=== PATIENT | male | born 1995 | race Caucasian/White ===

== ENCOUNTER 2017-08-08 17:10 | Inpatient (IN) | payer MEDICAID ==
[2017-08-08 19:55] VITALS: BP 126/64
[2017-08-08 20:38] VITALS: BP 150/90
[2017-08-08 21:23] VITALS: BP 115/60
[2017-08-08] MEDS ORDERED: PNEUMOCOCCAL VACCINE POLYVALENT 0.5 ML VIAL [PPSV23] IM ONE (22:45)
[2017-08-09 06:44] VITALS: BP 106/64
[2017-08-09 08:37] VITALS: BP 121/69
[2017-08-09] MEDS: LORazepam 2 MG TABLET PO PRN ×3 (09:36→20:13)
[2017-08-09] MEDS ORDERED: DiphenhydrAMINE HCL 25 MG CAPSULE PO ONE (13:00)
[2017-08-09] MEDS ORDERED: OLANZapine 10 MG TABLET PO ONE (13:00)
[2017-08-09 16:30] VITALS: BP 112/66
[2017-08-09] MEDS: OLANZapine 10 MG TABLET PO SCH (16:44)
[2017-08-09] MEDS: DiphenhydrAMINE HCL 25 MG CAPSULE PO SCH (16:44)
[2017-08-09] MEDS: ZOLPIDEM TARTRATE 10 MG TABLET PO PRN (20:13)
[2017-08-10 01:03] VITALS: BP 119/79
[2017-08-10] MEDS: DiphenhydrAMINE HCL 25 MG CAPSULE PO SCH ×2 (09:25→16:35)
[2017-08-10] MEDS: OLANZapine 10 MG TABLET PO SCH ×2 (09:25→16:35)
[2017-08-10 09:38] VITALS: BP 125/84
[2017-08-10 16:21] VITALS: BP 125/71
[2017-08-10] MEDS: LORazepam 2 MG TABLET PO PRN (16:35)
[2017-08-10] MEDS: OLANZapine 5 MG RAPDIS TABLET PO PRN (20:10)
[2017-08-10] MEDS: ZOLPIDEM TARTRATE 10 MG TABLET PO PRN (20:10)
[2017-08-11 06:22] VITALS: BP 105/66
[2017-08-11 08:34] VITALS: BP 110/64
[2017-08-11] MEDS: DiphenhydrAMINE HCL 25 MG CAPSULE PO SCH ×2 (09:08→17:09)
[2017-08-11] MEDS: OLANZapine 10 MG TABLET PO SCH ×2 (09:08→17:09)
[2017-08-11] MEDS: LORazepam 2 MG TABLET PO PRN ×3 (09:08→21:10)
[2017-08-11 16:10] VITALS: BP 118/73
[2017-08-11] MEDS: ZOLPIDEM TARTRATE 10 MG TABLET PO PRN (21:10)
[2017-08-12 06:15] VITALS: BP 105/65
[2017-08-12 08:45] VITALS: BP 104/65
[2017-08-12] MEDS: LORazepam 2 MG TABLET PO PRN ×3 (09:24→20:55)
[2017-08-12] MEDS: DiphenhydrAMINE HCL 25 MG CAPSULE PO SCH ×2 (09:24→16:53)
[2017-08-12] MEDS: OLANZapine 10 MG TABLET PO SCH ×2 (09:25→16:53)
[2017-08-12 16:00] VITALS: BP 112/68
[2017-08-12] MEDS: OLANZapine 5 MG RAPDIS TABLET PO PRN (16:54)
[2017-08-12] MEDS: ZOLPIDEM TARTRATE 10 MG TABLET PO PRN (20:55)
[2017-08-13 00:01] VITALS: BP 119/65
[2017-08-13 08:21] VITALS: BP 104/65
[2017-08-13] MEDS: DiphenhydrAMINE HCL 25 MG CAPSULE PO SCH ×2 (08:56→16:16)
[2017-08-13] MEDS: LORazepam 2 MG TABLET PO PRN ×2 (08:56→16:17)
[2017-08-13] MEDS: OLANZapine 10 MG TABLET PO SCH ×2 (08:56→16:16)
[2017-08-13 16:00] VITALS: BP 130/88
[2017-08-13] MEDS: OLANZapine 5 MG RAPDIS TABLET PO PRN (16:17)
[2017-08-14 07:11] VITALS: BP 128/78
[2017-08-14 08:23] VITALS: BP 102/63
[2017-08-14] MEDS: DiphenhydrAMINE HCL 25 MG CAPSULE PO SCH ×2 (08:43→16:27)
[2017-08-14] MEDS: LORazepam 2 MG TABLET PO PRN ×2 (08:43→16:27)
[2017-08-14] MEDS: OLANZapine 10 MG TABLET PO SCH (08:52)
[2017-08-14 16:18] VITALS: BP 117/66
[2017-08-14] MEDS: OLANZapine 7.5 MG TABLET PO SCH (16:27)
[2017-08-15 07:25] VITALS: BP_SYST 106; BP_SYST 120; BP_DIAS 66; BP_DIAS 78
[2017-08-15] MEDS: OLANZapine 7.5 MG TABLET PO SCH ×2 (09:46→17:08)
[2017-08-15] MEDS: LORazepam 2 MG TABLET PO PRN ×2 (09:47→17:09)
[2017-08-15] MEDS: DiphenhydrAMINE HCL 25 MG CAPSULE PO SCH ×2 (09:47→17:08)
[2017-08-15 16:36] VITALS: BP 111/63
[2017-08-15] MEDS: ZOLPIDEM TARTRATE 10 MG TABLET PO PRN (20:27)
[2017-08-15] MEDS ORDERED: NYSTATIN 15 GM POWDER BOTTLE TP PRN (21:00)
[2017-08-16 05:21] VITALS: BP 118/73
[2017-08-16 08:25] VITALS: BP 110/68
[2017-08-16] MEDS: DiphenhydrAMINE HCL 25 MG CAPSULE PO SCH ×2 (09:15→16:08)
[2017-08-16] MEDS: OLANZapine 7.5 MG TABLET PO SCH ×2 (09:16→16:08)
[2017-08-16] MEDS: LORazepam 2 MG TABLET PO PRN ×2 (09:22→16:08)
[2017-08-16 16:00] VITALS: BP 118/70
[2017-08-16] MEDS: OLANZapine 5 MG RAPDIS TABLET PO PRN (16:08)
[2017-08-17 00:35] VITALS: BP 114/80
[2017-08-17 08:27] VITALS: BP 108/62
[2017-08-17] MEDS: DiphenhydrAMINE HCL 25 MG CAPSULE PO SCH ×2 (09:08→16:19)
[2017-08-17] MEDS: LORazepam 2 MG TABLET PO PRN ×2 (09:08→16:19)
[2017-08-17] MEDS: OLANZapine 7.5 MG TABLET PO SCH ×2 (09:09→16:19)
[2017-08-17 16:00] VITALS: BP 114/70
[2017-08-17] MEDS: OLANZapine 5 MG RAPDIS TABLET PO PRN (16:20)
[2017-08-18 05:41] VITALS: BP 116/72
[2017-08-18 08:28] VITALS: BP 108/64
[2017-08-18] MEDS: OLANZapine 7.5 MG TABLET PO SCH ×2 (09:18→16:50)
[2017-08-18] MEDS: LORazepam 2 MG TABLET PO PRN ×2 (09:18→16:51)
[2017-08-18] MEDS: DiphenhydrAMINE HCL 25 MG CAPSULE PO SCH ×2 (09:19→16:50)
[2017-08-18 16:00] VITALS: BP 123/70
[2017-08-18] MEDS: OLANZapine 5 MG RAPDIS TABLET PO PRN (16:51)
[2017-08-19 01:33] VITALS: BP 127/72
[2017-08-19 08:09] VITALS: BP 101/63
[2017-08-19] MEDS: LORazepam 2 MG TABLET PO PRN ×2 (09:43→17:23)
[2017-08-19] MEDS: DiphenhydrAMINE HCL 25 MG CAPSULE PO SCH ×2 (09:43→17:23)
[2017-08-19] MEDS: OLANZapine 7.5 MG TABLET PO SCH ×2 (09:44→17:23)
[2017-08-19 16:00] VITALS: BP 112/66
[2017-08-19] MEDS: OLANZapine 5 MG RAPDIS TABLET PO PRN (21:21)
[2017-08-19] MEDS: ZOLPIDEM TARTRATE 10 MG TABLET PO PRN (21:21)
[2017-08-20 05:33] VITALS: BP 125/72
[2017-08-20 08:15] VITALS: BP 108/62
[2017-08-20] MEDS: DiphenhydrAMINE HCL 25 MG CAPSULE PO SCH ×2 (09:52→16:22)
[2017-08-20] MEDS: OLANZapine 7.5 MG TABLET PO SCH ×2 (09:52→16:22)
[2017-08-20 16:00] VITALS: BP 118/69
[2017-08-20] MEDS: OLANZapine 5 MG RAPDIS TABLET PO PRN (16:22)
[2017-08-20] MEDS: LORazepam 2 MG TABLET PO PRN (16:22)
[2017-08-21 03:12] VITALS: BP 122/66
[2017-08-21 08:24] VITALS: BP 108/65
[2017-08-21] MEDS: OLANZapine 7.5 MG TABLET PO SCH ×2 (08:42→17:08)
[2017-08-21] MEDS: LORazepam 2 MG TABLET PO PRN ×2 (08:42→17:09)
[2017-08-21] MEDS: DiphenhydrAMINE HCL 25 MG CAPSULE PO SCH ×2 (08:42→17:09)
[2017-08-21 16:00] VITALS: BP 123/71
[2017-08-21] MEDS: ZOLPIDEM TARTRATE 10 MG TABLET PO PRN (21:02)
[2017-08-21] MEDS: OLANZapine 5 MG RAPDIS TABLET PO PRN (21:02)
[2017-08-22 02:29] VITALS: BP 130/85
[2017-08-22] MEDS: OLANZapine 7.5 MG TABLET PO SCH ×2 (08:17→17:09)
[2017-08-22] MEDS: DiphenhydrAMINE HCL 25 MG CAPSULE PO SCH ×2 (08:17→17:09)
[2017-08-22 08:19] VITALS: BP 118/74
[2017-08-22 16:00] VITALS: BP 116/71
[2017-08-22] MEDS: LORazepam 2 MG TABLET PO PRN (17:09)
[2017-08-22] MEDS: ZOLPIDEM TARTRATE 10 MG TABLET PO PRN (20:34)
[2017-08-23 00:07] VITALS: BP 122/79
[2017-08-23 08:27] VITALS: BP 106/61
[2017-08-23] MEDS: DiphenhydrAMINE HCL 25 MG CAPSULE PO SCH ×2 (09:46→16:29)
[2017-08-23] MEDS: OLANZapine 7.5 MG TABLET PO SCH ×2 (09:46→16:28)
[2017-08-23 16:23] VITALS: BP 133/74
[2017-08-23] MEDS: LORazepam 2 MG TABLET PO PRN (20:21)
[2017-08-23] MEDS: ZOLPIDEM TARTRATE 10 MG TABLET PO PRN (20:21)
[2017-08-24 00:12] VITALS: BP 124/84
[2017-08-24 08:18] VITALS: BP 97/61
[2017-08-24] MEDS: OLANZapine 7.5 MG TABLET PO SCH ×2 (10:33→17:05)
[2017-08-24] MEDS: DiphenhydrAMINE HCL 25 MG CAPSULE PO SCH ×2 (10:33→17:05)
[2017-08-24 16:08] VITALS: BP 130/70
[2017-08-24] MEDS: LORazepam 2 MG TABLET PO PRN (17:05)
[2017-08-24] MEDS: OLANZapine 5 MG RAPDIS TABLET PO PRN (21:16)
[2017-08-24] MEDS: ZOLPIDEM TARTRATE 10 MG TABLET PO PRN (21:16)
[2017-08-25 00:48] VITALS: BP 109/61
[2017-08-25 08:10] VITALS: BP 112/66
[2017-08-25] MEDS: DiphenhydrAMINE HCL 25 MG CAPSULE PO SCH ×2 (09:36→16:31)
[2017-08-25] MEDS: OLANZapine 7.5 MG TABLET PO SCH ×2 (09:36→16:31)
[2017-08-25 16:00] VITALS: BP 116/69
[2017-08-25] MEDS: LORazepam 2 MG TABLET PO PRN (16:31)
[2017-08-26 05:01] VITALS: BP 121/83
[2017-08-26] MEDS: LORazepam 2 MG TABLET PO PRN ×2 (08:35→16:40)
[2017-08-26] MEDS: DiphenhydrAMINE HCL 25 MG CAPSULE PO SCH ×2 (08:35→16:40)
[2017-08-26] MEDS: OLANZapine 7.5 MG TABLET PO SCH ×2 (08:35→16:40)
[2017-08-26 08:38] VITALS: BP 114/62
[2017-08-26 16:43] VITALS: BP 110/82
[2017-08-27 00:01] VITALS: BP 116/75
[2017-08-27 08:28] VITALS: BP 112/72
[2017-08-27] MEDS: OLANZapine 7.5 MG TABLET PO SCH ×2 (08:46→17:06)
[2017-08-27] MEDS: DiphenhydrAMINE HCL 25 MG CAPSULE PO SCH ×2 (08:46→17:06)
[2017-08-27] MEDS: LORazepam 2 MG TABLET PO PRN ×2 (08:46→17:07)
[2017-08-27 16:00] VITALS: BP 116/70
[2017-08-28 05:19] VITALS: BP 118/76
[2017-08-28 08:15] VITALS: BP 129/74
[2017-08-28] MEDS: DiphenhydrAMINE HCL 25 MG CAPSULE PO SCH ×2 (09:05→16:05)
[2017-08-28] MEDS: OLANZapine 7.5 MG TABLET PO SCH ×2 (09:05→16:05)
[2017-08-28] MEDS: LORazepam 2 MG TABLET PO PRN ×2 (09:05→15:53)
[2017-08-28] MEDS: OLANZapine 5 MG RAPDIS TABLET PO PRN (15:53)
[2017-08-29 05:16] VITALS: BP 122/82
[2017-08-29 08:08] VITALS: BP 101/75
[2017-08-29] MEDS ORDERED: DIPH25 PO (08:27)
[2017-08-29] MEDS ORDERED: OLAN7.5T2 PO (08:27)
[2017-08-29] MEDS: OLANZapine 7.5 MG TABLET PO SCH (10:14)
[2017-08-29] MEDS: DiphenhydrAMINE HCL 25 MG CAPSULE PO SCH (10:14)
[2017-08-29] MEDS ORDERED: INFLUENZA VIRUS VACCINE QVS 2017-18 (3YR+)/PF 60 MCG/0.5 ML SYRINGE IM ONE (11:00)
== END 2017-08-29 16:00 | disposition home or self-care (01) | DRG 750 ==
LOC: B3A 20:30
DX: F25.1 Schizoaffective disorder, depressive type (principal); Z59.0 Homelessness; E66.3 Overweight; Z88.6 Allergy status to analgesic agent; Z79.899 Other long term (current) drug therapy; Z88.5 Allergy status to narcotic agent; Z88.8 Allergy status to other drugs, medicaments and biological substances; Z28.21 Immunization not carried out because of patient refusal

== ENCOUNTER 2019-05-02 21:00 | Emergency (ER) | payer MEDICAID, OTHER ==
[~2019-05-02] VITALS: Ht 175.3 cm; Wt 104.5 kg
[~2019-05-02 21:00] MED LIST: DIPH25 PO; OLAN7.5T2 PO
[2019-05-02] MEDS ORDERED: PANT40TA25 PO (21:22)
[2019-05-02] MEDS ORDERED: DIVA250T45 PO (21:22)
[2019-05-02] MEDS ORDERED: DIVA500T52 PO (21:22)
[2019-05-02] MEDS ORDERED: ATOR10TA84 PO (21:22)
[2019-05-02] MEDS ORDERED: QUET200T5 PO (21:22)
[2019-05-02] MEDS ORDERED: QUET400T PO (21:22)
[2019-05-02 21:29] LABS: BASOPHILS % (AUTO) 0.5 % (0.0-2.0); EOSINOPHILS % (AUTO) 0.1 % (1.0-6.0); HEMATOCRIT 43.3 % (41-53); HEMOGLOBIN 14.7 g/dL (13.5-17.5); LYMPHOCYTES # (AUTO) 1.7 K/uL (1.0-4.8); LYMPHOCYTES % (AUTO) 14.6 % (22.0-44.0); MEAN CORPUSCULAR HEMOGLOBIN 30.8 pg (26.0-34.0); MEAN CORPUSCULAR VOLUME 91 fL (80-100); MONOCYTES # (AUTO) 1.1 K/uL (0.1-1.0); MONOCYTES % (AUTO) 9.5 % (2.0-9.0); NEUTROPHILS # (AUTO) 8.9 K/uL (1.8-7.7); NEUTROPHILS % (AUTO) 75.3 % (40.0-70.0); PLATELET COUNT (AUTO) 188 K/uL (150-450); RED BLOOD CELL COUNT(AUTO) 4.78 MIL/uL (4.50-5.90); RED CELL DISTRIBUTION WIDTH 13.8 % (11.5-14.5)
[2019-05-02 21:51] LABS: ANION GAP 12 mmol/L (8-16); CALCIUM, TOTAL 9.5 mg/dL (8.8-10.5); CARBON DIOXIDE 23 mmol/L (22-29); CHLORIDE 104 mmol/L (98-107); CREATININE 1.27 mg/dL (0.60-1.30); GLOMERULAR FILTR. RATE CALC > 60 mL/min (>60); GLUCOSE,RANDOM 110 mg/dL (70-110); POTASSIUM 4.1 mmol/L (3.5-5.1); SODIUM SERUM 139 mmol/L (136-145); UREA NITROGEN, BLOOD 11 mg/dL (7-18)
[2019-05-02 21:57] LABS: ALANINE AMINOTRANSFERASE 63 U/L (12-78); ALKALINE PHOSPHATASE 98 U/L (46-116); ASPARTATE AMINOTRANSFERASE 34 U/L (15-37); BILIRUBIN,TOTAL 0.6 mg/dL (0.1-1.0)
[2019-05-02 21:59] LABS: AMPHET/METH SCREEN,URINE NEGATIVE (NEGATIVE); BARBITURATE SCREEN, URINE NEGATIVE (NEGATIVE); BENZODIAZEPINES SCREEN,URINE NEGATIVE (NEGATIVE); CANNABINOID SCREEN,URINE NEGATIVE (NEGATIVE); COCAINE SCREEN,URINE NEGATIVE (NEGATIVE); METHADONE SCREEN, URINE NEGATIVE (NEGATIVE); OPIATE SCREEN,URINE NEGATIVE (NEGATIVE)
[2019-05-02 22:00] LABS: PHENCYCLIDINE SCREEN,URINE NEGATIVE (NEGATIVE)
[2019-05-02] MEDS ORDERED: LORazepam 1 MG TABLET PO ONE (23:15)
[2019-05-03] VITALS: BP 120/64
[2019-05-03] MEDS ORDERED: IBUPROFEN 400 MG TABLET PO ONE
== END 2019-05-03 00:35 | disposition home or self-care (01) ==
LOC: EMS 21:01
DX: R44.0 Auditory hallucinations (principal); Z13.39 Encounter for screening examination for other mental health and behavioral disorders; Z88.6 Allergy status to analgesic agent; Z79.899 Other long term (current) drug therapy
CPT/HCPCS: 36415; 80053; 80307; 85025; 99285; G0480

== ENCOUNTER 2021-10-15 14:35 | Emergency (ER) | payer OTHER ==
[~2021-10-15] VITALS: Ht 182.9 cm; Wt 122.7 kg
[~2021-10-15 14:35] MED LIST changes: +ATOR10TA84 PO; -DIPH25 PO; +DIVA-80 PO; +DIVA-85 PO; -OLAN7.5T2 PO; +PANT-31 PO; +QUET200T5 PO; +QUET400T PO
[2021-10-15] MEDS ORDERED: MICONAZOLE NITRATE 2% 30 GM CREAM TP ONE (15:30)
[2021-10-15 17:45] VITALS: BP 118/75
== END 2021-10-15 17:48 | disposition home or self-care (01) ==
LOC: EMS 14:35
DX: R21 Rash and other nonspecific skin eruption (principal)
CPT/HCPCS: 99282; Z7502; Z7610

== ENCOUNTER 2021-10-30 17:44 | Emergency (ER) | payer OTHER ==
[~2021-10-30] VITALS: Ht 175.3 cm; Wt 130.2 kg
[2021-10-30 19:11] VITALS: BP 131/80
== END 2021-10-30 22:05 | disposition home or self-care (01) ==
LOC: EMS 17:49
DX: F20.9 Schizophrenia, unspecified (principal); Z88.8 Allergy status to other drugs, medicaments and biological substances; Z79.899 Other long term (current) drug therapy
CPT/HCPCS: 99284; Z7502